=== PATIENT | male | born 1970 | race Caucasian/White ===

== ENCOUNTER 2022-01-09 19:29 | Emergency (ER) | payer OTHER ==
[2022-01-09 19:34] VITALS: BP 151/98; PULSE 95; RESP 19; TEMP 97.8; BMI 34.2
[2022-01-09] MEDS ORDERED: DIPHTH,PERTUSS(ACELL),TET 0.5 ML DISP.SYRIN IM ONE ×2 (20:07→20:37)
== END 2022-01-09 21:23 | disposition home or self-care (01) ==
LOC: JERFT 19:29
PROC: 3E0234Z Introduction of Serum, Toxoid and Vaccine into Muscle, Percutaneous Approach (ICD-10-PCS; principal; 2022-01-09)
DX: S61.432A Puncture wound without foreign body of left hand, initial encounter (principal)
CPT/HCPCS: 73130-TC-LT-FY; 90471; 90715; 99284-25

== ENCOUNTER 2022-12-28 12:40 | Emergency (ER) | payer OTHER ==
[2022-12-28 12:45] VITALS: BMI 36.5
[2022-12-28] MEDS ORDERED: ACETAMINOPHEN 1000 MG/100 ML BAG IVPB ONE (13:12)
[2022-12-28] MEDS ORDERED: ACETAMINOPHEN INJECTION 100 ML IVPB ONE (14:01)
[2022-12-28 15:05] LABS: BASO % 0.5 % (0-2.0); EOS % 2.2 % (0-4.5); HEMATOCRIT 43.3 % (35.4-49); HEMOGLOBIN 15.3 GM/dL (11.7-16.9); LYMPH % 24.1 % (8-40); MCH 30.9 pg (25.7-33.7); MCHC 35.3 g/dl (32.0-35.9); MEAN CELL VOLUME 87.6 fl (80-96); MEAN PLT VOLUME 7.3 fl (7.5-11.1); MONO % 8.6 % (3.8-10.2); NEUT % 64.6 % (42.8-82.8); PLATELET COUNT 225 10^3/uL (134-434); RBC 4.94 M/mm3 (4.00-5.60); RDW 14.1 % (11.9-15.9); WHITE BLOOD COUNT 10.2 K/mm3 (4.0-10.0)
[2022-12-28 15:14] LABS: URINE APPEARANCE CLEAR; URINE BILIRUBIN NEGATIVE (NEGATIVE); URINE COLOR YELLOW; URINE GLUCOSE (UA) NEGATIVE (NEGATIVE); URINE KETONE NEGATIVE (NEGATIVE); URINE LEUK ESTERASE NEGATIVE (NEGATIVE); URINE NITRITE NEGATIVE (NEGATIVE); URINE PROTEIN NEGATIVE (NEGATIVE); URINE UROBILINOGEN 0.2 mg/dL (0.2-1.0)
[2022-12-28 15:16] LABS: INR 1.03 (0.83-1.09)
[2022-12-28 15:18] LABS: ACTIVATED PTT 29.4 SECONDS (25.2-36.5)
[2022-12-28 15:22] LABS: POTASSIUM 4.1 mmol/L (3.5-5.1)
[2022-12-28 15:25] LABS: ALBUMIN 4.4 g/dl (3.4-5.0); BLOOD UREA NITROGEN 12.6 mg/dL (7-18)
[2022-12-28 15:28] LABS: CREATININE 1.2 mg/dL (0.55-1.3)
[2022-12-28 15:29] LABS: BILIRUBIN,TOTAL 0.6 mg/dL (0.2-1); TOT PROT 7.9 g/dl (6.4-8.2)
[2022-12-28 17:16] VITALS: TEMP 98
[2022-12-28] MEDS ORDERED: SODIUM CHLORIDE 0.9% 500 ML INFUS.BAG IV ONE (17:45)
[2022-12-28] MEDS ORDERED: KETOROLAC TROMETHAMINE 15 MG/ML VIAL IVPUSH ONE (17:45)
[2022-12-28] MEDS ORDERED: KETOROLAC TROMETHAMINE 15 MG/ML VIAL ONE (17:53)
[2022-12-28 18:46] VITALS: BP 149/105; PULSE 73; RESP 16
== END 2022-12-28 18:47 | disposition home or self-care (01) ==
LOC: JER 12:40
PROC: 3E033NZ Introduction of Analgesics, Hypnotics, Sedatives into Peripheral Vein, Percutaneous Approach (ICD-10-PCS; principal; 2022-12-28)
PROC: 3E033GC Introduction of Other Therapeutic Substance into Peripheral Vein, Percutaneous Approach (ICD-10-PCS; 2022-12-28)
DX: R10.32 Left lower quadrant pain (principal); N20.0 Calculus of kidney; R30.0 Dysuria
CPT/HCPCS: 36415; 74177-TC; 76870-TC; 80053; 81003; 85025; 85610; 85730; 86850; 86900; 86901; 87086; 99285-25; Q9967

== ENCOUNTER 2023-02-23 05:06 | Day surgery (SDC) | payer OTHER ==
[2023-02-20 12:16] VITALS: BMI 35.7
[2023-02-23] MEDS ORDERED: FENTANYL CITRATE/PF 50 MCG/ML VIAL ONE (09:06)
[2023-02-23] MEDS ORDERED: ONDANSETRON 4 MG/2 ML VIAL ONE (09:06)
[2023-02-23] MEDS ORDERED: MIDAZOLAM HCL 2 MG/2 ML SINGLE DOSE VIAL ONE (09:06)
[2023-02-23 09:57] VITALS: RESP 18
[2023-02-23 11:21] VITALS: BP 120/78; PULSE 59; TEMP 96
== END 2023-02-23 10:25 | disposition home or self-care (01) ==
LOC: JASU-SURG 05:06
PROVIDERS: ATTEND Urology
PROC: 0TF4XZZ Fragmentation in Left Kidney Pelvis, External Approach (ICD-10-PCS; principal; 2023-02-23 09:19)
DX: N20.0 Calculus of kidney (principal)

== ENCOUNTER 2023-10-19 04:29 | Day surgery (SDC) | payer OTHER ==
[2023-10-13 11:07] VITALS: BMI 31.3
[2023-10-19 12:48] VITALS: RESP 18
[2023-10-19] MEDS ORDERED: MIDAZOLAM HCL 2 MG/2 ML SINGLE DOSE VIAL ONE (14:51)
[2023-10-19 16:11] VITALS: PULSE 76
[2023-10-19 16:52] VITALS: BP 120/79; TEMP 98.7
== END 2023-10-19 16:40 | disposition home or self-care (01) ==
LOC: JASU-SURG 04:29
PROVIDERS: ATTEND Urology
PROC: 0TF4XZZ Fragmentation in Left Kidney Pelvis, External Approach (ICD-10-PCS; principal; 2023-10-19 15:00)
DX: N20.0 Calculus of kidney (principal)